=== PATIENT | male | born 1945 | race African-American/Black ===

== ENCOUNTER 2017-06-17 15:16 | Emergency (ER) | payer SELFPAY ==
[~2017-06-17] VITALS: Ht 160 cm; Wt 82.0 kg
[2017-06-17] MEDS ORDERED: TETANUS, DIPHTHERIA, PERTUSSIS VAC/PF 0.5ML (>7YR OLD) IM ONE (22:15)
[2017-06-17] MEDS ORDERED: BACITRACIN ZINC OINT UDPKT TOP ONE (22:15)
[2017-06-17 23:28] VITALS: BP 139/87
== END 2017-06-17 23:31 | disposition home or self-care (01) ==
LOC: ER 21:05
DX: S61.451A Open bite of right hand, initial encounter (principal); E11.9 Type 2 diabetes mellitus without complications; E78.00 Pure hypercholesterolemia, unspecified; I10 Essential (primary) hypertension; Z98.890 Other specified postprocedural states; W54.0XXA Bitten by dog, initial encounter; Y93.89 Activity, other specified; Y92.018 Other place in single-family (private) house as the place of occurrence of the external cause
CPT/HCPCS: 90471; 90715; 99283